=== PATIENT | male | born 1995 | race Hispanic/Latino ===

== ENCOUNTER 2020-08-07 21:08 | Emergency (ER) | payer OTHER ==
[2020-08-07] MEDS ORDERED: ACETAMINOPHEN 500 MG TABLET ONE (21:31)
[2020-08-07] MEDS ORDERED: IBUPROFEN 800 MG TAB ONE (21:32)
== END 2020-08-07 23:37 | disposition home or self-care (01) ==
LOC: EDH 21:08
DX: J06.9 Acute upper respiratory infection, unspecified (principal); Z20.828 Contact with and (suspected) exposure to other viral communicable diseases; Z72.0 Tobacco use
CPT/HCPCS: 71045; 87426; 87804 ×2; 87880; 99284; U0003